=== PATIENT | female | born 1985 | race American Indian/Alaskan Native ===

== ENCOUNTER 2020-05-26 21:26 | Emergency (ER) | payer OTHER ==
[2020-05-26 22:41] VITALS: BP 123/98
[2020-05-26] MEDS ORDERED: KETOROLAC 30 MG/1 ML INJ IM ONE (23:24)
[2020-05-26] MEDS ORDERED: methylPREDNISolone Sod Succinate 125 MG/2 ML INJ IM ONE (23:24)
[2020-05-26] MEDS ORDERED: ACETAMINOPHEN 500 MG TAB PO ONE (23:25)
[2020-05-26] MEDS ORDERED: LORazepam 1 MG TAB PO ONE (23:25)
--- NOTE | 2020-05-26 23:47 | Emergency Department Report ---
ED Anxiety HPI - General Chief Complaint: Anxiety Stated Complaint: ANXIETY Source: patient Mode of arrival: Ambulatory - History of Present Illness Initial Comments: Patient is a 35-year-old -[place] female with a history of anxiety who presents to the ED with acute onset persistent diffuse body tingling sensation with numbness for the last 2 hours. Patient states that she had just smoked cig arettes and was laying down to sleep when she started feeling tingling sensation in the hands and feet which subsequently spread all over her body. Patient states that she has felt these sensations before and thought that it is the same anxiety and panic attack that she has had before. Patient states that as she laid down the symptoms got worse and worse and she called the EMS to bring her to the ED for evaluation. Patient denies chest pain, shortness of breath, change in vision, syncope, dizziness, loss of consciousness, seizures, fever, chills, cough, abdominal pain, nausea and vomiting, diarrhea or hallucinations suicidal or homicidal ideations. MD Complaint: anxiety, other (diffuse body and extremity tingling and numbness sensations) -: Sudden, hour(s) (2) Symptoms: extremity numbness, muscle cramps Place: home Previous History of Same: Yes Severity: moderate Quality: intermittant Provoking factors: none known, emotional stress Improves With: nothing Worsens With: nothing Associated symptoms: denies: chest pain, palpitations, diaphoresis, denies other symptoms, confusion, fever/chills, headaches, anorexia, malaise, nausea/vomiting, rash, seizure, syncope, weakness, other - Related Data Home Medications: Previous Rx's Medication Instructions Recorded Last Taken Type hydrOXYzine PAMOATE [Vistaril] 25 mg PO Q6HR PRN #60 capsule 05/26/20 Unknown Rx Allergies/Adverse Reactions: Allergies Allergy/AdvReac Type Severity Reaction Status Date / Time No Known Allergies Allergy Unverified 05/26/20 21:55 ED Review of Systems ROS: Stated complaint: ANXIETY Other details as noted in HPI Constitutional: denies: chills, fever Eyes: denies: eye pain, eye discharge, vision change ENT: denies: ear pain, throat pain Respiratory: denies: cough, shortness of breath, wheezing Cardiovascular: denies: chest pain, palpitations Endocrine: no symptoms reported Gastrointestinal: denies: abdominal pain, nausea, diarrhea Genitourinary: denies: urgency, dysuria, discharge Musculoskeletal: denies: back pain, joint swelling, arthralgia Skin: denies: rash, lesions Neurological: denies: headache, weakness, paresthesias Psychiatric: anxiety. denies: depression, auditory hallucinations, visual hallucinations, homicidal thoughts, suicidal thoughts Hematological/Lymphatic: denies: easy bleeding, easy bruising ED Past Medical Hx - Past Medical History Previous Medical History?: No Hx Psychiatric Treatment: Yes (Anxiety) - Surgical History Past Surgical History?: No - Social History Smoking Status: Current Every Day Smoker Substance Use Type: Alcohol - Medications Home Medications: Home Medications Medication Instructions Recorded Confirmed Last Taken Type hydrOXYzine PAMOATE [Vistaril] 25 mg PO Q6HR PRN #60 capsule 05/26/20 Unknown Rx ED Physical Exam - General Limitations: No Limitations General appearance: alert, in no apparent distress - Head Head exam: Present: atraumatic, normocephalic, normal inspection - Eye Eye exam: Present: normal appearance, PERRL, EOMI Pupils: Present: normal accommodation - ENT ENT exam: Present: normal exam, normal orophraynx, mucous membranes moist, TM's normal bilaterally, normal external ear exam - Neck Neck exam: Present: normal inspection, full ROM - Respiratory Respiratory exam: Present: normal lung sounds bilaterally. Absent: respiratory distress, wheezes, rales, stridor, chest wall tenderness, accessory muscle use, prolonged expiratory - Cardiovascular Cardiovascular Exam: Present: regular rate, normal rhythm, normal heart sounds. Absent: systolic murmur, diastolic murmur, rubs, gallop - GI/Abdominal GI/Abdominal exam: Present: soft, normal bowel sounds. Absent: distended, tenderness, guarding, rebound, hyperactive bowel sounds, hypoactive bowel sounds, organomegaly - Extremities Exam Extremities exam: Present: normal inspection, full ROM, normal capillary refill - Back Exam Back exam: Present: normal inspection, full ROM. Absent: CVA tenderness (L), muscle spasm, paraspinal tenderness - Neurological Exam Neurological exam: Present: alert, oriented X3, CN II-XII intact, normal gait, reflexes normal - Psychiatric Psychiatric exam: Present: normal affect, normal mood, anxious - Skin Skin exam: Present: warm, dry, intact, normal color. Absent: rash ED Course Vital Signs 05/26/20 21:54 Temperature 98.3 F Pulse Rate 100 H Respiratory 16 Rate Blood Pressure 123/98 O2 Sat by Pulse 97 Oximetry ED Medical Decision Making - Medical Decision Making This is a 35-year-old -[place] female with a history of anxiety who presents to the ED with acute onset persistent diffuse body tingling sensation with numbness for the last 2 hours. Patient states that she had just smoked cigarettes and was laying down to sleep when she started feeling tingling sensation in the hands and feet which subsequently spread all over her body. Patient states that she has felt these sensations before and thought that it is the same anxiety and panic attack that she has had before. Patient states that as she laid down the symptoms got worse and worse and she called the EMS to bring her to the ED for evaluation. In the ED, patient is alert and oriented x3 and is not in any distress. But appears anxious. Patient was treated for anxiety in the ED. On reevaluation, patient felt better and was discharged home on medications. Patient was advised to follow-up with her primary care physician in 3 to 5 days for reevaluation or return to the ED immediately if symptoms get worse. - Differential Diagnosis Anxiety, panic attack; Muscle strains; cervical radiculopathy Critical care attestation.: If time is entered above; I have spent that time in minutes in the direct care of this critically ill patient, excluding procedure time. ED Disposition Clinical Impression: Anxiety as acute reaction to exceptional stress Disposition: DC-01 TO HOME OR SELFCARE Is pt being admited?: No Does the pt Need Aspirin: No Condition: Stable Instructions: Generalized Anxiety Disorder (ED) Additional Instructions: Your symptoms are due to anxiety attack or panic attack. Therefore take medic ation with food, drink plenty of fluids and follow-up with your primary care physician in 3 to 5 days for reevaluation. Return to the ED immediately if symptoms get worse. Prescriptions: hydrOXYzine PAMOATE [Vistaril] 25 mg PO Q6HR PRN #60 capsule PRN Reason: Anxiety Referrals: [facility] [Provider Group] - 3-5 Days Time of Disposition: 23:53 Print Language: LUXEMBOURGER
== END 2020-05-27 00:12 | disposition home or self-care (01) ==
LOC: ED 21:26
DX: F41.1 Generalized anxiety disorder (principal); F43.0 Acute stress reaction; F17.200 Nicotine dependence, unspecified, uncomplicated; Z79.899 Other long term (current) drug therapy